=== PATIENT | female | born 1975 | race Caucasian/White ===

== ENCOUNTER 2021-07-07 15:59 | Emergency (ER) | payer OTHER ==
[2021-07-07] MEDS ORDERED: cephALEXin 250 MG CAPSULE PO STA (16:14)
--- NOTE | 2021-07-07 16:16 | ED Physician Documentation ---
PD HPI WOUND RECHECK - Stated complaint Stated Complaint: RT SIDE FACE SWELLING - Chief complaint Chief Complaint: Wound - Histroy obtained from History obtained from: Patient - Additional information Additional information: 46-year-old woman visiting her daughter who is preparing to give . She is from [place]. 2 days ago she [place] and thinks she got bitten on the face by something. She not sure what. She subsequently developed a lot of itchiness of the right side of the face. Today more pain especially in the area of the right preauricular lymph node that is worse with yawning. Declines pain medication. No fevers. Review of Systems Constitutional: denies: Fever, Chills Ears: denies: Loss of hearing, Ear pain, Drainage/discharge Nose: denies: Rhinorrhea / runny nose, Congestion Throat: denies: Dental pain / toothache, Sore throat Cardiac: denies: Chest pain / pressure, Palpitations Respiratory: denies: Dyspnea, Cough PD PAST MEDICAL HISTORY - Present Medications Home Medications: Ambulatory Orders Medication Instructions Recorded Confirmed cephALEXin [Keflex] 500 mg PO Q6H #28 cap 07/07/21 - Allergies Allergies/Adverse Reactions: Allergies Allergy/AdvReac Type Severity Reaction Status Date / Time No Known Drug Allergies Allergy Verified 07/07/21 16:13 PD ED PE NORMAL - Vitals Vital signs reviewed: Yes - General General: Alert and oriented X 3, No acute distress - HEENT HEENT: Other (Mild redness and swelling of the right preauricular area and tenderness of the right preauricular lymph node. TMs and intraoral exam normal save almost edentulous) - Neck Neck: Supple, no meningeal sign, No bony TTP - Neuro Neuro: Alert and oriented X 3, Normal speech Results - Vitals Vitals: Vital Signs - 24 hr 07/07/21 16:01 Temperature 36 C L Heart Rate 84 Respiratory 16 Rate Blood Pressure 140/91 H O2 Saturation 97 Oxygen O2 Source Room air PD MEDICAL DECISION MAKING - ED course ED course: Could be mild cellulitis of the face versus a bug bite manifesting now with more lymph node pain. Close watchful waiting was advised along with antibiotics. Departure - Departure Disposition: 01 Home, Self Care Clinical Impression: Cellulitis Qualifiers: Site of cellulitis: face Qualified Code(s): L03.211 - Cellulitis of face Condition: Good Record reviewed to determine appropriate education?: Yes Instructions: Cellulitis Dc Prescriptions: cephALEXin [Keflex] 500 mg PO Q6H #28 cap Comments: Return if you worsen or fail to improve over the next 48 hours. Return also if you develop a fever or pain gets worse.
[2021-07-07 16:30] VITALS: BP 128/86
== END 2021-07-07 16:31 | disposition home or self-care (01) ==
LOC: ED 15:59
DX: L03.211 Cellulitis of face (principal)
CPT/HCPCS: 99282; 99283; A9270